=== PATIENT | male | born 1945 | race Caucasian/White ===

== ENCOUNTER 2019-04-19 17:14 | Outpatient (REF) | payer MEDICARE, OTHER, SELFPAY ==
[2019-04-19 19:45] LABS: Anion Gap 9.8 mmol/L (3-11); BUN 23 mg/dL (7-18); CO2 26.2 mmol/L (21.0-32.0); CREATININE 1.05 mg/dL (0.70-1.30); Calcium 9.1 mg/dL (8.5-10.1); Chloride 104 mmol/L (98-107); Glucose 122 mg/dL (70-100); Potassium 4.3 mmol/L (3.5-5.1); Sodium 140 mmol/L (136-145)
== END 2019-04-19 17:34 ==
LOC: NCHCN 17:14
PROVIDERS: PCP Family Medicine; Visit Provider Family Medicine
DX: E11.9 Type 2 diabetes mellitus without complications (principal); Z79.4 Long term (current) use of insulin
CPT/HCPCS: 80048

== ENCOUNTER 2020-05-14 20:56 | Outpatient (REF) | payer MEDICARE, OTHER, SELFPAY ==
[2020-05-14 19:41] LABS: ALT 28 U/L (16-63); AST 15 U/L (15-37); Albumin 4.4 g/dL (3.4-5.0); Alkaline Phosphatase 51 U/L (46-116); Anion Gap 5.7 mmol/L (3-11); BUN 27 mg/dL (7-18); Bilirubin, Total 0.4 mg/dL (0.2-1.0); CO2 29.3 mmol/L (21.0-32.0); CREATININE 1.06 mg/dL (0.70-1.30); Calcium 9.2 mg/dL (8.5-10.1); Chloride 105 mmol/L (98-107); Glucose 126 mg/dL (74-106); Potassium 4.5 mmol/L (3.5-5.1); Sodium 140 mmol/L (136-145); Total Protein 7.3 g/dL (6.4-8.2)
== END 2020-05-14 21:16 ==
LOC: NCHCN 20:56
PROVIDERS: PCP Family Medicine; Visit Provider Family Medicine
DX: E11.9 Type 2 diabetes mellitus without complications (principal); Z79.4 Long term (current) use of insulin; E78.5 Hyperlipidemia, unspecified; E66.9 Obesity, unspecified
CPT/HCPCS: 80053

== ENCOUNTER 2021-04-22 19:56 | Outpatient (REF) | payer MEDICARE, OTHER, SELFPAY ==
[2021-04-22 20:39] LABS: BUN 27 mg/dL (7-18); Calcium 8.9 mg/dL (8.5-10.1); Chloride 106 mmol/L (98-107); Glucose 102 mg/dL (74-106); Potassium 4.2 mmol/L (3.5-5.1); Sodium 143 mmol/L (136-145)
== END 2021-04-22 19:57 | disposition home or self-care (01) ==
LOC: NCHCN 19:56
PROVIDERS: PCP Family Medicine; Visit Provider Family Medicine
DX: E11.9 Type 2 diabetes mellitus without complications (principal); Z79.4 Long term (current) use of insulin
CPT/HCPCS: 80048

== ENCOUNTER 2023-01-14 19:41 | Outpatient (REF) | payer MEDICARE, SELFPAY ==
[2023-01-14 19:54] LABS: Anion Gap 10.1 mmol/L (3-11); BUN 28 mg/dL (7-18); CO2 26.9 mmol/L (21.0-32.0); CREATININE 1.1 mg/dL (0.70-1.30); Calcium 9.6 mg/dL (8.5-10.1); Calculated LDL 75 mg/dL (<100); Chloride 106 mmol/L (98-107); Cholesterol 146 mg/dL (<200); Estimated GFR 69.57 (mL/min/1.73m2); Glucose 135 mg/dL (74-106); HDL Cholesterol 47 mg/dL (40-60); Potassium 4.2 mmol/L (3.5-5.1); Sodium 143 mmol/L (136-145); Triglyceride 120 mg/dL (<150)
[2023-01-14 19:55] LABS: Hemoglobin A1C 6.8 % (<5.7)
== END 2023-01-14 19:42 | disposition home or self-care (01) ==
LOC: NCHCN 19:41
PROVIDERS: PCP Family Medicine; Visit Provider Family Medicine
DX: E11.9 Type 2 diabetes mellitus without complications (principal); E78.5 Hyperlipidemia, unspecified
CPT/HCPCS: 80048; 80061; 83036

== ENCOUNTER 2023-08-21 20:19 | Outpatient (REF) | payer MEDICARE, SELFPAY ==
[2023-08-21 19:49] LABS: Hemoglobin A1C 6.9 % (<5.7)
== END 2023-08-21 20:20 | disposition home or self-care (01) ==
LOC: NCHCN 20:19
PROVIDERS: PCP Family Medicine; Visit Provider Family Medicine
DX: E11.9 Type 2 diabetes mellitus without complications (principal)
CPT/HCPCS: 83036

== ENCOUNTER 2023-10-27 15:51 | Outpatient (REF) | payer MEDICARE, SELFPAY ==
[2023-10-27 19:07] LABS: HCT 37.4 % (40.0-50.0); HGB 12.4 g/dL (13.5-17.5); MCH 29.4 pg (27.0-33.0); MCHC 33.2 % (32.0-36.0); MCV 89 fL (80-95); MPV 9.8 fL (8.0-11.0); Platelet Count 260 10^3/uL (130-400); RBC 4.22 10^6/uL (4.36-5.78); RDW 13.2 % (11.8-14.1); RDW-SD 42.8 fL
[2023-10-27 19:18] LABS: BUN 24 mg/dL (7-18); CREATININE 1.1 mg/dL (0.70-1.30); Calcium 8.5 mg/dL (8.5-10.1); Chloride 105 mmol/L (98-107); Estimated GFR 69.14 (mL/min/1.73m2); Glucose 105 mg/dL (74-106); Potassium 4.4 mmol/L (3.5-5.1); Sodium 143 mmol/L (136-145)
[2023-10-27 19:39] LABS: Hemoglobin A1C 8.6 % (<5.7)
== END 2023-10-27 15:52 | disposition home or self-care (01) ==
LOC: NCHCN 15:51
PROVIDERS: PCP Family Medicine; Visit Provider Student in an Organized Health Care Education/Training Program
DX: E11.9 Type 2 diabetes mellitus without complications (principal); Z01.818 Encounter for other preprocedural examination; Z01.812 Encounter for preprocedural laboratory examination
CPT/HCPCS: 80048; 85027; 83036

== ENCOUNTER 2025-02-03 18:33 | Outpatient (REF) | payer MEDICARE, SELFPAY ==
[2025-02-03 21:14] LABS: Abs Immature Grans 0.01 10^3/uL (0.0-0.06); HCT 35.1 % (40.0-50.0); HGB 11.7 g/dL (13.5-17.5); Immature Grans % 0.2 %; MCH 29.9 pg (27.0-33.0); MCHC 33.3 % (32.0-36.0); MCV 90 fL (80-95); MPV 10.2 fL (8.0-11.0); Platelet Count 210 10^3/uL (130-400); RBC 3.91 10^6/uL (4.36-5.78); RDW 12.9 % (11.8-14.1); RDW-SD 42.5 fL; WBC 4.99 10^3/uL (4.4-10.8)
[2025-02-03 21:26] LABS: ALT 24 U/L (16-63); AST 16 U/L (15-37); Albumin 3.9 g/dL (3.4-5.0); Alkaline Phosphatase 49 U/L (46-116); Anion Gap 6.7 mmol/L (3-11); BUN 27 mg/dL (7-18); Bilirubin, Total 0.4 mg/dL (0.2-1.0); CO2 28.3 mmol/L (21.0-32.0); Calcium 8.9 mg/dL (8.5-10.1); Calculated LDL 48 mg/dL (<100); Chloride 106 mmol/L (98-107); Cholesterol 116 mg/dL (<200); Estimated GFR 61.90 (mL/min/1.73m2); Glucose 196 mg/dL (74-106); HDL Cholesterol 34 mg/dL (>or=40); Potassium 4.3 mmol/L (3.5-5.1); Sodium 141 mmol/L (136-145); Total Protein 6.7 g/dL (6.4-8.2); Triglyceride 170 mg/dL (<150)
[2025-02-03 21:35] LABS: COMMENT (LAB VIEW ONLY) 110.44 mg/dL; Microalb ug/mg Crea 22.5 ug/mg Cr
== END 2025-02-03 18:34 | disposition home or self-care (01) ==
LOC: NCHCN 18:33
PROVIDERS: PCP Family Medicine; Visit Provider Student in an Organized Health Care Education/Training Program
DX: E11.9 Type 2 diabetes mellitus without complications (principal); R50.9 Fever, unspecified
CPT/HCPCS: 80053; 80061; 82043; 82570; 85025

== ENCOUNTER 2025-02-03 18:59 | Outpatient (CLI) | payer MEDICARE, SELFPAY ==
--- NOTE | 2025-02-03 16:44 | DI.RAD_ITS ---
Exam(s) XR CHEST 2V PA LATERAL EXAM: XR CHEST 2V PA LATERAL CLINICAL HISTORY: Decreased breath sounds at right lung base, R06.89; 1+ peripheral bilateral TECHNIQUE: 2D digital imaging was performed. Two views. COMPARISON: No exams were available for comparison FINDINGS: HEART: Mildly enlarged. Aorta: Tortuous. PULMONARY VASCULATURE: Normal. MEDIASTINUM: Unremarkable. LUNGS: Clear. PLEURAL SPACE: No pleural effusion or pneumothorax. BONE:Unremarkable for age. SOFT TISSUES: Unremarkable. IMPRESSION: No acute abnormality. DATA REPOSITORY: RADIATION DOSE DELIVERED:
== END 2025-02-03 19:19 ==
LOC: DI 19:00
PROVIDERS: PCP Family Medicine; Visit Provider Student in an Organized Health Care Education/Training Program
DX: R06.89 Other abnormalities of breathing (principal)
CPT/HCPCS: 71046

== ENCOUNTER 2025-02-23 03:18 | Outpatient (CLI) | payer MEDICARE, SELFPAY ==
--- NOTE | 2025-02-23 | DI.CT_ITS ---
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 TECHNIQUE: Imaging Protocol: Axial CT angiography was performed with multi- slice acquisition and multi-planar and/or 3D reconstructions. CONTRAST MATERIAL: Intravenous: Omnipaque 350 Contrast volume:100 ml Oral: no COMPARISON: CR XR CHEST 2V PA LATERAL from 02/03/2025 FINDINGS: CHEST: Pulmonary Arteries: No evidence of filling defect to suggest pulmonary emboli. Tracheobronchial tree: Patent where visualized. Mediastinum and Francoise: No dominant adenopathy or fluid collection. Pulmonary parenchyma: No consolidation or dominant measurable mass. No architectural distortion. Pleura: No effusion or pneumothorax. Heart: The heart is minimally dilated. No coronary artery calcifications are seen. Aorta: Thoracic aorta non-dilated. Mildly tortuous. No significant atherosclerotic changes. Bones: Normal. Prominent endplate osteophytes. Catheters, and Lines: None ABDOMEN AND PELVIS: Celiac axis/mesenteric arteries: No evidence of occlusion or significant stenosis. Renal Arteries: No evidence of occlusion or significant stenosis. There is a single renal artery perfusing each kidney. Aorta: There is minimal focal outpouching laterally toward the left of the mid abdominal aorta with mild mural thrombus. No evidence of occlusion or significant stenosis. No dissection. Iliac Arteries: No evidence of occlusion or significant stenosis. Common Femoral Arteries: No evidence of occlusion or significant stenosis. ABDOMEN/pelvis: Liver: Normal density. Of small cysts superiorly. No suspicious mass. Portal, Superior Mesenteric, and Splenic Veins: Unremarkable. Gallbladder and Biliary Tract: No radiodense calculus or dilation. Pancreas: Normal density, no abnormal calcifications or inflammatory process. Spleen: Normal. Adrenals: No masses seen. Kidneys: Normal size, contour and axis. No radiodense stones or obstructive uropathy. No masses seen. Bowel: No obstruction or bowel wall thickening. Appendix is unremarkable. Peritoneal Cavity: No ascites, collection or mesenteric inflammatory response. Lymph Nodes: Within normal limits. Bones: Degenerative and postsurgical changes in the lumbar spine. No compression fractures. Soft Tissues: Fat containing right inguinal hernia measuring 5 cm in diameter. Bladder: Symmetric distention, no gross wall thickening. Reproductive Organs: Unremarkable as visualized. Lymph Nodes: Within normal limits. Bones: Within normal limits. IMPRESSION: No acute abnormality in the chest abdomen or pelvis. The thoracic aorta is somewhat tortuous but normal in diameter and shows minimal atherosclerotic changes. There are mild atherosclerotic changes in the abdominal aorta. This slight focal at passing the midportion of the abdominal aorta with mild mural thrombus, measuring 2.8 cm. RADIATION DOSE DELIVERED: Total DLP DATA REPOSITORY: All CT scans at this facility are submitted to the National Radiology Data Registry (NRDR) Dose Index Registry (DIR) with the [employer] ([employer]). RADIATION OPTIMIZATION: All CT scans at this facility use at least one of these dose optimization techniques: automated exposure control; mA and/or kV adjustment per patient size (includes targeted exams where dose is matched to clinical indication); or iterative reconstruction.
[2025-02-23] MEDS: Omnipaque 350 MG/ML 500 ML BTL-Imaging package IJ (15:11)
[2025-02-23] MEDS: Normal Saline Flush 10 ML SYR IVP (15:12)
[2025-02-23] MEDS: Normal Saline - Diluent 50 ML VIAL IJ (15:12)
== END 2025-02-23 03:38 ==
PROVIDERS: PCP Family Medicine; Visit Provider Internal Medicine Cardiovascular Disease
DX: I77.1 Stricture of artery (principal); R93.1 Abnormal findings on diagnostic imaging of heart and coronary circulation
CPT/HCPCS: 71275; 74174

== ENCOUNTER 2025-03-06 09:29 | Outpatient (CLI) | payer MEDICARE, SELFPAY ==
[2025-03-06 09:16] LABS: ESR 18 mm/hr (0-20)
[2025-03-06 10:10] LABS: Anion Gap 10.9 mmol/L (3-11); BUN 25 mg/dL (7-18); CO2 25.1 mmol/L (21.0-32.0); Calcium 9.7 mg/dL (8.5-10.1); Chloride 103 mmol/L (98-107); Estimated GFR 61.90 (mL/min/1.73m2); Glucose 239 mg/dL (74-106); Potassium 4.4 mmol/L (3.5-5.1); Sodium 139 mmol/L (136-145)
[2025-03-06 10:12] LABS: C-Reactive Protein < 0.50 mg/dL (<or=0.5)
[2025-03-06 10:24] LABS: Hemoglobin A1C 6.7 % (<5.7)
[2025-03-07 11:07] LABS: Syphilis Serology (RPR) Negative (Negative)
[2025-03-07 17:54] LABS: Ferritin 57 ng/mL (26-388); Vitamin B12 370 pg/mL (193-986)
[2025-03-07 17:59] LABS: Iron 107 ug/dL (65-175); Total Iron Binding Capacity 324 ug/dL (250-450); Transferrin Sat 33 % (20-55)
== END 2025-03-06 09:30 | disposition home or self-care (01) ==
LOC: LBO 09:29
PROVIDERS: PCP Family Medicine; Visit Provider Student in an Organized Health Care Education/Training Program
DX: E11.9 Type 2 diabetes mellitus without complications (principal); D64.9 Anemia, unspecified
CPT/HCPCS: 36415; 80048; 85652; 86200; 87040; 82607; 82728; 83036; 83540; 83550; 86038; 86140; 86431; 86592

== ENCOUNTER 2025-05-04 13:39 | Outpatient (CLI) | payer MEDICARE, SELFPAY ==
[2025-05-04 15:12] LABS: Abs Immature Grans 0.01 10^3/uL (0.0-0.06); HCT 37.6 % (40.0-50.0); HGB 12.4 g/dL (13.5-17.5); Immature Grans % 0.2 %; MCH 29.6 pg (27.0-33.0); MCHC 33.0 % (32.0-36.0); MCV 90 fL (80-95); MPV 9.2 fL (8.0-11.0); Platelet Count 202 10^3/uL (130-400); RBC 4.19 10^6/uL (4.36-5.78); RDW 13.0 % (11.8-14.1); RDW-SD 42.2 fL; WBC 5.33 10^3/uL (4.4-10.8)
[2025-05-05 13:55] LABS: Albumin 62.3 % (55.8-66.1); Albumin g/dL 4.3 g/dL (3.6-5.2); Alpha 1 g/dL 0.30 g/dL (0.15-0.40); Alpha 2 g/dL 0.80 g/dL (0.50-1.00); Beta g/dL 0.80 g/dL (0.60-1.20); Gamma g/dL 0.80 g/dL (0.60-1.60); Total Protein 6.9 g/dL (6.3-8.2)
== END 2025-05-04 13:40 | disposition home or self-care (01) ==
LOC: LBO 13:39
PROVIDERS: PCP Student in an Organized Health Care Education/Training Program; Visit Provider Student in an Organized Health Care Education/Training Program
DX: D64.9 Anemia, unspecified (principal)
CPT/HCPCS: 36415; 84165; 85025

== ENCOUNTER → 2025-05-18 00:23 | Outpatient (CLI) | payer MEDICARE, SELFPAY ==
--- NOTE | 2025-05-18 | DI.US_ITS ---
Exam(s) US UPPER EXTREMITY VENOUS RT EXAM: US UPPER EXTREMITY VENOUS RT CLINICAL HISTORY: R22.31 Localized swelling, mass and lump, RT upper limb TECHNIQUE: GRAYSCALE, COLOR, DOPPLER IMAGING OF THE VENOUS SYSTEM OF THE UPPER EXTREMITY-BILATERAL COMPARISON: US ABDOMEN ULTRASOUND from 12/22/2008 FINDINGS: Basilic vein: Patent. Normal color-flow and normal compression and augmentation properties. Brachial vein(s):Patent. Normal color flow. Normal compression and augmentation properties. Cephalic vein:Patent. Normal color flow. Normal compression and augmentation properties. Axillary vein: Patent. Normal color flow. Normal compression and augmentation properties. Visualized subclavian vein: Patent. No obvious intraluminal thrombus. Although there is no evidence of intraluminal thrombus, in the medial aspect of the upper right arm adjacent to the upper basilar vein there is a noncompressible nodular density measuring approximately 1.2 x 0.8 cm noted.. This may be significant. IMPRESSION: 1. No evidence of venous thrombosis in the right upper extremity. 2. However, there is a noncompressible 12 x 8 mm nodule in the medial aspect of the upper right arm adjacent to the compressible patent brachial vein at this level. This may be a significant lesion. For this reason I recommend follow-up contrast infused MRI of this region. DATA REPOSITORY:
== END ==
LOC: DI 00:24
PROVIDERS: PCP Student in an Organized Health Care Education/Training Program; Visit Provider Student in an Organized Health Care Education/Training Program
DX: R22.31 Localized swelling, mass and lump, right upper limb (principal)
CPT/HCPCS: 93971

== ENCOUNTER 2025-05-22 10:24 | Outpatient (CLI) | payer MEDICARE, SELFPAY ==
[2025-05-22 12:09] LABS: Anion Gap 9 mmol/L (3-11); BUN 24 mg/dL (9-23); CO2 28.0 mmol/L (20.0-31.0); Calcium 9.4 mg/dL (8.3-10.6); Chloride 106 mmol/L (98-107); Glucose 143 mg/dL (74-106); Potassium 4.4 mmol/L (3.5-5.1); Sodium 143 mmol/L (136-145)
== END 2025-05-22 10:25 | disposition home or self-care (01) ==
LOC: LBO 10:24
PROVIDERS: PCP Student in an Organized Health Care Education/Training Program; Visit Provider Student in an Organized Health Care Education/Training Program
DX: R22.30 Localized swelling, mass and lump, unspecified upper limb (principal)
CPT/HCPCS: 36415; 80048